=== PATIENT | male | born 1955 | race Caucasian/White ===

== ENCOUNTER → 2021-09-03 | Outpatient (CLI) | payer MEDICARE, SELFPAY ==
--- NOTE | 2021-09-03 09:55 | ART_ITS ---
Reason For Study: atherosclerosis Procedure A bilateral lower extremity continuous wave Doppler with analog waveform analysis and ankle brachial indexes. Left Segmental Pressures Left brachial= 124mmHg. Left posterior tibial artery = 65mmHg. Left dorsalis pedis artery = 69mmHg. The left dorsalis pedis waveforms are monophasic. The left posterior tibial artery waveforms are monophasic. Right Segmental Pressures Right brachial= 131mmHg. Right posterior tibial artery = 59mmHg. Right dorsalis pedis artery = 84mmHg. The right dorsalis pedis waveforms are monophasic. The right posterior tibial artery waveforms are monophasic. Indices The right ankle brachial index by the dorsalis pedis is .64. The right ankle brachial index by the posterior tibial artery is .45. The left ankle brachial index by the posterior tibial artery is .5. The left ankle brachial index by the dorsalis pedis is .53. VL/Ankle Brachial Index Interpretation Summary Bilateral lower extremities with moderate occlusive disease at rest with monoph asic flow and an LIEN 0.64 on the right 0.53 on the left. Ordering Physician: Ravin Melendez Performed By: Negrito Banerjee RVT
== END | disposition home or self-care (01) ==
LOC: CVS 09:46
PROVIDERS: PCP Nurse Practitioner Primary Care; Referring Provider Surgery Vascular Surgery; Visit Provider Surgery Vascular Surgery
DX: I70.213 Atherosclerosis of native arteries of extremities with intermittent claudication, bilateral legs (principal)
CPT/HCPCS: 93922